=== PATIENT | male | born 1955 | race African-American/Black ===

== ENCOUNTER 2018-06-27 10:47 | Outpatient (CLI) | payer MEDICARE ==
--- NOTE | 2018-06-27 12:03 | CT ---
CT OF LUMBAR SPINE PERFORMED WITHOUT CONTRAST ENHANCEMENT: HISTORY: Low back pain. No description of any radicular-type symptoms. FINDINGS: The vertebral bodies are normal in height. There is marked disk narrowing at the L2-3 and L5-S1 leve ls with vacuum disk phenomenon. Some minimal spondylolisthesis of L3 on L4. There are degenerative facet changes noted. No significant periaortic adenopathy and the visualized portions of the kidneys appear unremarkable. Minimal scoliotic change of the spine convex to the left. T12-L1: Unremarkable. L1-2: No significant disk bugle. No canal or foraminal stenosis. L2-3: There appears to be a moderate degree of canal stenosis with degenerative facet changes and di sk bulging. L3-4: Moderately severe canal stenosis caused by disk bulge with minimal spondylolisthesis and degen erative facet changes. No definite significant foraminal narrowing. L4-5: Borderline canal narrowing at this level. No significant foraminal stenosis. L5-S1: There is disk bulge at this level. There is vacuum disk phenomenon seen and along the left l ateral margin and to a lesser extent the right lateral margin of the disk some vacuum disk material, perhaps not truly extruded but at least probably within the outer annulus fibers. There does appear to be bilateral foraminal narrowing at this level which is moderate. IMPRESSION: Multilevel canal and foraminal stenosis as discussed above. POS: [facility]
== END 2018-06-27 10:48 | disposition home or self-care (01) ==
LOC: NAV CT 10:47
PROVIDERS: ATTEND Internal Medicine
DX: M51.9 Unspecified thoracic, thoracolumbar and lumbosacral intervertebral disc disorder (principal); M54.5 Low back pain; M48.061 Spinal stenosis, lumbar region without neurogenic claudication; M48.07 Spinal stenosis, lumbosacral region; Z95.0 Presence of cardiac pacemaker
CPT/HCPCS: 72131

== ENCOUNTER 2018-09-05 14:04 | Outpatient (CLI) | payer MEDICARE ==
--- NOTE | 2018-09-05 14:39 | CT ---
CT Thoracic Spine WO Con History: [Thoracic radiculitis. T10-T12 radiculopathy.] Comparison: None available Findings: The visualized lungs are clear. Cardiac device is present. The aortic contour is nonaneurys mal. Heart size does appear to be enlarged. There is no acute fracture or malalignment of the thoracic spine. Limited evaluation of the levels ar e as follows: T1/T2: Degenerative disc space height loss. No significant neural foraminal or spinal canal narrowing. T2/T3: Severe degenerative disc space height loss. Circumferential disc osteophyte complex. Hypertrop hic facet changes on the left. Moderate right neural foraminal narrowing. T3/T4: Moderate to severe degenerative disc space height loss. Circumferential disc osteophyte comple x, greatest in the right subfrontal zone. Moderate right-sided neural foraminal narrowing. T4/T5: Moderate degenerative disc space height loss. Circumferential disc osteophyte complex greatest in the left subforaminal zone with moderate left neural foraminal narrowing. T5/T6: Circumferential disc osteophyte complex greatest in the left subforaminal zone. Moderate to se werner left neural foraminal narrowing. T6/T7: Moderate to severe degenerative disc space height loss. Moderate circumferential disc osteophy te complex. Moderate left-sided neural foraminal narrowing. T7/T8: Moderate degenerative disc space height loss. Moderate loop circumferential disc bulge is grea test in the left subforaminal zone. Moderate left neural foraminal narrowing. T8/T9: Moderate circumferential disc space height loss. Low-grade circumferential disc osteophyte com plex. No significant neural foraminal narrowing. T9/T10: Moderate degenerative disc space height loss. Circumferential disc bulge. No significant neur al foraminal or spinal canal narrowing. T10/T11: Advanced posterior degenerative disc space height loss. Mild facet arthrosis. Mild bilateral neural foraminal narrowing. Spinal canal measures approximately 8 millimeter. T11/T12: Circumferential disc osteophyte complex. Moderate facet arthrosis. Moderate bilateral neural foraminal narrowing. Impression: Moderate spondylosis as described with multilevel neural foraminal narrowing. Myelogram h as greater sensitivity for nerve root abutment and spinal canal narrowing.
== END 2018-09-05 14:05 | disposition home or self-care (01) ==
LOC: NAV CT 14:04
PROVIDERS: ATTEND Anesthesiology Pain Medicine
DX: M47.24 Other spondylosis with radiculopathy, thoracic region (principal); M48.04 Spinal stenosis, thoracic region
CPT/HCPCS: 72128

== ENCOUNTER 2018-12-05 16:56 | Emergency (ER) | payer MEDICARE ==
[2018-12-05] MEDS ORDERED: Ondansetron PF 4 MG/2 ML Vial ONE (17:26)
[2018-12-05 17:44] LABS: ALT (SGPT) 24 U/L (8-55); AST (SGOT) 16 U/L (5-34); Albumin 4.1 g/dL (3.4-4.8); Alkaline Phosphatase 52 U/L (40-150); Anion Gap 14 mmol/L (10-20); BUN (Urea Nitrogen) 15 mg/dL (8.4-25.7); Bilirubin, Total 0.3 mg/dL (0.2-1.2); CK (CPK) 78 U/L (30-200); Calc. Creatinine Clearance 0 mL/min (70-130); Calcium 9.3 mg/dL (7.8-10.44); Carbon Dioxide 23 mmol/L (23-31); Chloride 108 mmol/L (98-107); Estimated GFR-MDRD 78; Globulin 2.9 g/dL (2.4-3.5); Glucose 101 mg/dL (80-115); Potassium 4.1 mmol/L (3.5-5.1); Sodium 141 mmol/L (136-145)
[2018-12-05 17:47] LABS: Hemoglobin 13.4 g/dL (14.0-18.0); Mean Corpuscular HGB CONC 30.3 g/dL (32.0-36.0); Mean Corpuscular Hemoglobin 21.9 pg (27.0-31.0); Mean Corpuscular Volume 72.4 fL (78.0-98.0); Mean Platelet Volume 8.6 fL (7.4-10.4); Platelet Count 135 thou/uL (130-400); RBC Distribution Width 13.8 % (11.5-14.5)
[2018-12-05 18:02] LABS: CKMB 1.2 ng/mL (0-6.6)
--- NOTE | 2018-12-05 18:02 | RAD ---
SINGLE VIEW OF THE CHEST: 12/05/18 COMPARISON: None. HISTORY: Chest pain. FINDINGS: Single view of the chest shows an enlarged cardiomediastinal silhouette. A pacemaker is seen with its leads in the right atrium and ventricle. There is no evidence of consolidation, mass, or pleural eff usion. IMPRESSION: No evidence of acute cardiopulmonary disease. POS: [facility]
[2018-12-05 18:14] LABS: Hypochromia SLIGHT = 6-15 cells (100X) (0-5/hpf); Lymphocytes 28 % (21-51); MDiff Complete? YES; Microcytosis SLIGHT = 6-15 cells (100X) (0-5/hpf); Monocytes 12 % (0-10); Neutrophil 60 % (42-75); Platelet Morphology Comment Appears Adequate
[2018-12-05] MEDS ORDERED: Pantoprazole 40 MG VIAL ONE (18:17)
[2018-12-05] MEDS ORDERED: Baclofen 10 MG TAB PO SCH (18:45)
== END 2018-12-05 18:50 | disposition home or self-care (01) ==
LOC: NAV ERS 16:56
DX: K29.70 Gastritis, unspecified, without bleeding (principal); R06.6 Hiccough; I10 Essential (primary) hypertension; Z86.73 Personal history of transient ischemic attack (TIA), and cerebral infarction without residual deficits; Z79.899 Other long term (current) drug therapy
CPT/HCPCS: 71045; 80053; 82550; 82553; 84484; 85025; 93005; 96374; 96375; C9113; J2405

== ENCOUNTER 2019-02-10 08:27 | Emergency (ER) | payer MEDICARE ==
[2019-02-10] MEDS ORDERED: Iopamidol 370 76% 100 ML VIAL ONE (09:00)
[2019-02-10 09:12] LABS: #Eosinphils 0.1 thou/uL (0.0-0.7); #Lymphocytes 0.8 thou/uL (1.20-3.40); #Monocytes 0.2 thou/uL (0.11-0.59); #Neutrophils 2.4 thou/uL (1.40-6.50); %Eosinophils 2.4 % (0.0-10.0); %Lymphocytes 21.5 % (21.0-51.0); %Monocytes 5.7 % (0.0-10.0); %Neutrophils 69.4 % (42.0-75.0); Mean Corpuscular HGB CONC 31.4 g/dL (32.0-36.0); Mean Corpuscular Hemoglobin 22.2 pg (27.0-31.0); Mean Corpuscular Volume 70.6 fL (78.0-98.0); Mean Platelet Volume 8.8 fL (7.4-10.4); Platelet Count 140 thou/uL (130-400); Red Blood Cell (RBC) Count 5.85 mill/uL (4.70-6.10); White Blood Cell (WBC) Count 3.5 thou/uL (4.8-10.8)
[2019-02-10 09:24] LABS: ALT (SGPT) 48 U/L (8-55); AST (SGOT) 38 U/L (5-34); Albumin 4.2 g/dL (3.4-4.8); Alkaline Phosphatase 65 U/L (40-150); Anion Gap 16 mmol/L (10-20); BUN (Urea Nitrogen) 18 mg/dL (8.4-25.7); Bilirubin, Total 0.3 mg/dL (0.2-1.2); Calc. Creatinine Clearance 0 mL/min (70-130); Calcium 9.3 mg/dL (7.8-10.44); Carbon Dioxide 23 mmol/L (23-31); Chloride 108 mmol/L (98-107); Estimated GFR-MDRD 64; Globulin 2.5 g/dL (2.4-3.5); Glucose 95 mg/dL (80-115); Potassium 3.9 mmol/L (3.5-5.1); Protein, Total 6.7 g/dL (5.8-8.1); Sodium 143 mmol/L (136-145)
[2019-02-10 09:30] LABS: Anisocytosis SLIGHT = 6-15 cells (100X) (0-5/hpf); MDiff Complete? YES; Microcytosis SLIGHT = 6-15 cells (100X) (0-5/hpf); Platelet Morphology Comment Appears Adequate
--- NOTE | 2019-02-10 09:33 | CT ---
EXAM: CT Facial Bones WO Con PROVIDED CLINICAL HISTORY: Patient hit head and injured lifting after a fall this morning. Syncopal episode. Patient on blood th inners. COMPARISON: None FINDINGS: There is a large area of subcutaneous soft tissue swelling and evidence of hematoma seen anterior to the mandible centrally and to the right of midline. No underlying fracture is visualized. Temporomandibular joints are normally located without evidence of a dislocation. There is a lucency seen within the right aspect of the mandible, but the patient's tooth is absent fr om this region. This is probably related to focal area of osteopenia. There are periapical lucencies involving the posterior mandibular teeth on the left suggesting periapical abscesses. No obvious fracture is seen involving the facial bones. There is no displaced fracture visualized. Th ere are air-fluid levels seen in each maxillary antrum with slight increased density which may represent small amount of hemorrhage, but again no definitive fracture is visualized. Mucosal thicken ing is present within the ethmoidal air cells bilaterally as well as involving the left maxillary antrum. The orbits are normal and symmetric in appearance bilaterally. Degenerative changes are seen in the visualized cervical spine. Vascular calcifications are seen in t he carotid arteries. IMPRESSION: 1. No obvious acute fracture is visualized involving the facial bones. 2. Air fluid levels with mild increased density in each maxillary antrum which suggests a small amoun t of hemorrhage, but as stated above, no definitive fracture is visualized. 3. Sinus disease. 4. Large hematoma and soft tissue swelling anterior to the mandible into the right of midline. 5. Focal lucencies involving posterior left mandibular molars which may represent periapical abscesse s.
[2019-02-10 09:54] LABS: INR-International Normal Ratio 1.1; PTT 33.9 SEC (22.9-36.1); Prothrombin Time 14.4 SEC (12.0-14.7)
[2019-02-10 10:29] LABS: Bilirubin Negative (Negative); Blood, Urine Negative (Negative); Clarity Clear (Clear); Glucose, Urine (Dipstick) Negative (Negative); Leukocyte Negative (Negative); Nitrite Negative (Negative); Protein, Urine (Dipstick) Negative (Neg-Trace); Urobilinogen 0.2 mg/dL (Less than 2)
--- NOTE | 2019-02-10 10:31 | CT ---
CT OF HEAD NONCONTRAST: INDICATION: Syncope. FINDINGS: No evidence of ventriculomegaly, mass effect, midline shift, or acute intracranial hemorrhage. Scatt ered paranasal sinus inflammatory opacification and fluid levels are demonstrated. IMPRESSION: 1. No acute intracranial abnormalities. 2. Scattered paranasal sinus inflammatory process including fluid levels. Correlate clinically. POS: [facility]
--- NOTE | 2019-02-10 10:57 | CT ---
CT arteriogram chest with IV contrast and 3-D imaging CT thoracic spine noncontrast HISTORY: Fall. Chest injury. Dyspnea. FINDINGS: Low density filling defect within a small peripheral pulmonary artery at the right lung ape x, beyond which there is mild pulmonary hyperinflation and mild scarring. No other pulmonary artery filling defects evident. Good contrast opacification of the thoracic aorta with bovine origin of the great vessels at the aortic arch. Heart is enlarged mild atelectasis at the lung bases. No pneumothorax or mediastinal hematoma. Degenerative changes of the thoracic spine with rightward co nvex rotatory scoliotic curvature and prominent osteophytosis. Vertebral body heights and AP alignment are maintained. No acute fracture or dislocation are apparent. 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 No acute traumatic injury is demonstrated. Cardiomegaly. Findings were called to Dr. Rust in the [facility] emergency department at 1048 hours. Code QA.
--- NOTE | 2019-02-10 11:08 | RAD ---
PORTABLE CHEST: Date: 02/10/19 HISTORY: Patient is status post fall with chest pain. COMPARISON: 12/25/18 study. FINDINGS: Heart size is enlarged with internal defibrillator device present. Lungs are clear of any infiltrativ e process. There are no signs of failure. IMPRESSION: Cardiomegaly. Stable chest. POS: [facility]
== END 2019-02-10 11:26 | disposition short-term general hospital (02) ==
LOC: NAV ERS 08:27
DX: R55 Syncope and collapse (principal); I10 Essential (primary) hypertension; Z86.73 Personal history of transient ischemic attack (TIA), and cerebral infarction without residual deficits; Z95.0 Presence of cardiac pacemaker; Z79.01 Long term (current) use of anticoagulants; Z79.82 Long term (current) use of aspirin; Z79.899 Other long term (current) drug therapy
CPT/HCPCS: 70450; 70486; 71045; 71275; 80053; 81003; 82553; 84484; 85025; 85379; 85610; 85730; 93005

== ENCOUNTER 2020-06-10 12:54 | Outpatient (CLI) | payer MEDICARE ==
--- NOTE | 2020-06-10 13:11 | RAD ---
Exam: 3 views lumbar spine HISTORY: Low back pain. FINDINGS: AP, lateral and spot lumbosacral junction demonstrate 5 lumbar type vertebra. There is vacu um disc phenomenon at L1-L2, L2-L3 and L5-S1. Severe degenerative disc disease at those levels. Lumbar spine vertebral body heights are maintained. No fracture 6 mm of anterolisthesis of L3 upon L4. Visualized sacrum and bony pelvis are intact IMPRESSION: Multilevel degenerative changes of the lumbar spine.
== END 2020-06-10 12:55 | disposition home or self-care (01) ==
LOC: NAV RAD 12:54
PROVIDERS: ATTEND Family Medicine
DX: M54.5 Low back pain (principal); M47.816 Spondylosis without myelopathy or radiculopathy, lumbar region
CPT/HCPCS: 72100

== ENCOUNTER 2020-12-09 15:48 | Outpatient (CLI) | payer MEDICARE | END 2020-12-09 15:49 | disposition home or self-care (01) | LOC: NAV RAD 15:48 | PROVIDERS: ATTEND Family Medicine | DX: M10.9 Gout, unspecified (principal); M19.072 Primary osteoarthritis, left ankle and foot; M79.89 Other specified soft tissue disorders ==

== ENCOUNTER 2021-07-29 10:51 | Outpatient (CLI) | payer MEDICARE ==
[2021-07-29 11:50] LABS: Anion Gap 13 mmol/L (10-20); BUN (Urea Nitrogen) 25 mg/dL (8.4-25.7); Calc. Creatinine Clearance 0 mL/min (70-130); Calcium 9.3 mg/dL (7.8-10.44); Carbon Dioxide 29 mmol/L (23-31); Chloride 106 mmol/L (98-107); Glucose 110 mg/dL (80-115); Magnesium 2.2 mg/dL (1.6-2.6); Potassium 4.8 mmol/L (3.5-5.1); Sodium 143 mmol/L (136-145)
== END 2021-07-29 10:52 | disposition home or self-care (01) ==
LOC: NAV LAB 10:51
PROVIDERS: ATTEND Family Medicine
DX: I50.23 Acute on chronic systolic (congestive) heart failure (principal)
CPT/HCPCS: 80048; 83735; 83880

== ENCOUNTER 2022-05-17 10:00 | Outpatient (CLI) | payer OTHER | END 2022-05-17 10:01 | disposition home or self-care (01) | LOC: NAV RAD 10:00 | PROVIDERS: ATTEND Family Medicine | DX: U07.1 COVID-19 (principal) | CPT/HCPCS: 71046 ==